=== PATIENT | male | born 1945 | race Caucasian/White ===

== ENCOUNTER 2023-07-31 16:58 | Emergency (ER) | payer MEDICARE, BC ==
[~2023-07-31] VITALS: Ht 175.3 cm; Wt 97.1 kg
[2023-07-31 17:47] LABS: BASOPHILS # (AUTO) 0.03 K/uL (0.00-0.20); BASOPHILS % (AUTO) 0.6 % (0.0-5.0); EOSINOPHILS # (AUTO) 0.44 K/uL (0.00-0.70); EOSINOPHILS % (AUTO) 8.7 % (0.0-8.0); IMMATURE GRANULOCYTE ABSOLUTE 0.02 K/uL (0-1); LYMPHOCYTES # (AUTO) 1.7 K/uL (1.0-4.8); LYMPHOCYTES % (AUTO) 32.7 % (21.0-51.0); MEAN CORPUSCULAR HEMOGLOBIN 30.2 pg (27.0-33.0); MEAN CORPUSCULAR HGB CONC 33.2 g/dL (32.0-36.0); MEAN CORPUSCULAR VOLUME 91.1 fL (79-99); MONOCYTES # (AUTO) 0.9 K/uL (0.1-1.0); MONOCYTES % (AUTO) 17.5 % (3.0-13.0); NEUTROPHILS % (AUTO) 40.1 % (40.0-77.0); PLATELET COUNT (AUTO) 130 K/uL (130-400); RED BLOOD CELL COUNT(AUTO) 4.83 MIL/uL (4.50-6.20); RED CELL DISTRIBUTION WIDTH 15.3 % (11.0-15.5)
[2023-07-31 17:52] LABS: SARS-CoV-2, RNA, NAAT NEGATIVE SARS CoV-2 (NEGATIVE)
[2023-07-31 17:57] LABS: INFLUENZA TYPE A Negative For Type A (NEGATIVE); INFLUENZA TYPE B Negative For Type B (NEGATIVE)
[2023-07-31 17:57] LABS: POTASSIUM 4.4 mmol/L (3.5-5.1)
[2023-07-31 18:04] LABS: ALBUMIN 3.5 g/dL (3.5-5.0); BILIRUBIN,TOTAL 0.4 mg/dL (0.2-1.0); TOTAL PROTEIN, SERUM 7.4 g/dL (6.0-8.3)
[2023-07-31 18:54] LABS: APPEARANCE,URINE CLEAR (CLEAR); BILIRUBIN,URINE NEGATIVE (NEGATIVE); COLOR,URINE YELLOW (YELLOW); GLUCOSE, URINE (UA) >=1000 mg/dL (NEGATIVE); KETONES,URINE NEGATIVE (NEGATIVE); LEUKOCYTE ESTERASE ,URINE NEGATIVE Leu/uL (NEGATIVE); NITRATE,URINE NEGATIVE (NEGATIVE); OCCULT BLOOD,URINE NEGATIVE (NEGATIVE); PH,URINE 5.5 (5.0-8.0); PROTEIN,URINE NEGATIVE (NEGATIVE); UROBILINOGEN,URINE 0.2 mg/dL (0.2-1.0)
[2023-07-31 18:55] LABS: ADD UA MICROSCOPIC YES
[2023-07-31 19:00] LABS: RBC,URINE 0-1 /HPF (0-1); WBC,URINE 0-1 /HPF (0-1)
[2023-07-31 19:35] VITALS: PULSE 85; RESP 22
[2023-07-31] MEDS: ALBUTEROL 0.083% 2.5 MG/3 ML INH IH ONE (19:35)
[2023-07-31] MEDS: LEVOFLOXACIN 750 MG/D5W 150ML BAG IV ONE (19:53)
[2023-07-31 20:36] VITALS: BP 129/68; PULSE 79; RESP 19; O2SAT 96
[2023-07-31] MEDS ORDERED: ALBUHFA IH (20:36)
[2023-07-31] MEDS ORDERED: BENZ-39 PO (20:36)
[2023-07-31] MEDS ORDERED: LEVO-70 PO (20:36)
== END 2023-07-31 21:01 | disposition home or self-care (01) ==
LOC: EDH 16:58
DX: J40 Bronchitis, not specified as acute or chronic (principal); R05.9 Cough, unspecified; J98.01 Acute bronchospasm; E11.9 Type 2 diabetes mellitus without complications; E78.00 Pure hypercholesterolemia, unspecified; I10 Essential (primary) hypertension; Z20.822 Contact with and (suspected) exposure to COVID-19
CPT/HCPCS: 99285; 96365; 71045; 87635; 80053; 83880; 85025; 87040 ×2; 87804 ×2; 83605; 81001; 36415; 93005; 94640; J1956